=== PATIENT | female | born 1990 | race African-American/Black ===

== ENCOUNTER 2024-02-14 04:54 | Emergency (ER) | payer MEDICAID ==
[~2024-02-14] VITALS: Ht 167.6 cm; Wt 99.6 kg
[2024-02-14 06:40] VITALS: BP 151/92; PULSE 81; RESP 18; TEMP 98.7; O2SAT 99
[2024-02-14] MEDS ORDERED: IBUP-1456 PO (07:20)
[2024-02-14] MEDS: cefTRIAXone SOD 1,000 MG VL IM ONE (07:20)
[2024-02-14] MEDS: IBUPROFEN 800 MG TAB PO ONE (07:20)
[2024-02-14] MEDS ORDERED: AMOX875T3 PO (07:20)
== END 2024-02-14 07:37 | disposition home or self-care (01) ==
LOC: ER 04:54
DX: H66.92 Otitis media, unspecified, left ear (principal); J03.90 Acute tonsillitis, unspecified
CPT/HCPCS: 96372; 99283; J0696